=== PATIENT | male | born 1975 | race Hispanic/Latino ===

== ENCOUNTER 2018-03-02 11:10 | Emergency (ER) | payer OTHER ==
[~2018-03-02] VITALS: Ht 175.3 cm; Wt 83.9 kg
--- NOTE | 2018-03-02 12:32 | Diagnostic Imaging Report ---
History: Headaches Comparison studies: None Technique: Axial images were obtained from the skull base to the vertex. Coronal and sagittal reconstructions obtained from the axial data. Findings: Scalp/skull: No abnormalities. No fractures, blastic or lytic lesions. Extra-axial spaces: No masses. No fluid collections. Brain sulci: Appropriate for age. Ventricles: Normal in size and configuration. No hydrocephalus. Parenchyma: No abnormal densities. No masses, hemorrhage, acute or chronic cortical vascular insults. Sellar/suprasellar region: No abnormalities Craniocervical junction: Patent foramen magnum. No Chiari one malformation. IMPRESSION: No abnormalities . Signed by: DR Bob Franklin M.D. on 03/02/2018 12:28 PM
== END 2018-03-02 13:05 | disposition home or self-care (01) ==
LOC: ER 11:21
DX: G44.219 Episodic tension-type headache, not intractable (principal)
CPT/HCPCS: 70450; 99283